=== PATIENT | male | born 2000 | race Caucasian/White ===

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

== ENCOUNTER 2019-05-11 04:05 | Emergency (ER) | payer OTHER ==
[~2019-05-11] VITALS: Ht 177.8 cm; Wt 76.9 kg
[~2019-05-11 04:05] MED LIST changes: +ACET325T33 PO; +ACET500C5 PO; -AMO500 PO; +AMOX500C2 PO; +BENZ-6 PO; +CYCL10TA7 PO; +DICY10CA40 PO; -DICY10CA60 PO; +ELEC100080 PO; +IBUP-1542 PO; +IBUP-1561 PO; +IBUP800T48 PO; +LORA10CA PO; +ONDA4TAB8 PO; +OSEL75CA23 PO; +PSEU120T12 PO; +RANI150T35 PO; -RANI150T9 PO
[2019-05-11 04:08] VITALS: Ht 177.8 cm; Wt 76.9 kg
[2019-05-11] MEDS ORDERED: KETOROLAC 30 MG INJ IM STA (04:20)
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
[2019-05-11] MEDS ORDERED: ACETAMINOPHEN 325 MG TAB PO ONE (04:30)
[2019-05-11 06:50] VITALS: BP 130/70; PULSE 77; RESP 18
== END 2019-05-11 06:52 | disposition home or self-care (01) ==
LOC: FTE 04:05
DX: S20.219A Contusion of unspecified front wall of thorax, initial encounter (principal); S30.0XXA Contusion of lower back and pelvis, initial encounter; T14.8XXA Other injury of unspecified body region, initial encounter; V43.52XA Car driver injured in collision with other type car in traffic accident, initial encounter
CPT/HCPCS: 71046; 72100; 96372; J1885; Z7502; Z7610